=== PATIENT | male | born 1950 | race Caucasian/White ===

== ENCOUNTER → 2020-02-10 | Outpatient (CLI) | payer BC, MEDICARE | END | disposition home or self-care (01) | LOC: CVU 08:04 | PROVIDERS: ATTEND Internal Medicine Cardiovascular Disease | DX: R94.31 Abnormal electrocardiogram [ECG] [EKG] (principal); I10 Essential (primary) hypertension; E11.9 Type 2 diabetes mellitus without complications | CPT/HCPCS: 93306 ==

== ENCOUNTER → 2020-07-20 | Outpatient (CLI) | payer MEDICARE ==
[~2020-07-20] MED LIST: ASCO100018 PO; ASPI-496 PO; ATOR10TA9 PO; CALC300T4 PO; CHOL10003 PO; ENAL20TA9 PO; FINA5TAB4 PO; FURO20TA3 PO; GARL10002 PO; HYDR-3240 PO; HYDR-3241 PO; Hydro Eye PO; IBUP-1223 PO; LEVO137T2 PO; METF500T17 PO; OMEG100023 PO; OMNIPAQUE 350 MG/ML, 100ML BOTTLE ONE; POTA10CA PO; RANI150T4 PO; TRIA1TAB5 PO; TURM500C4 PO; UBID1CAP43 PO; hydro Eye PO; zinc PO
== END | disposition home or self-care (01) ==
LOC: CFH 07:08
PROVIDERS: ATTEND Pathology Hematology
DX: C73 Malignant neoplasm of thyroid gland (principal); N28.1 Cyst of kidney, acquired; N20.0 Calculus of kidney; Z90.49 Acquired absence of other specified parts of digestive tract
CPT/HCPCS: 71260; 74177; Q9967

== ENCOUNTER 2020-11-08 09:07 | Outpatient (CLI) | payer MEDICARE ==
[~2020-11-08 09:07] MED LIST changes: +HYDR-1067 PO; -HYDR-3240 PO; -OMNIPAQUE 350 MG/ML, 100ML BOTTLE ONE
[2020-11-08] MEDS ORDERED: OMNIPAQUE 350 MG/ML, 100ML BOTTLE ONE (09:45)
== END 2020-11-08 23:59 | disposition home or self-care (01) ==
LOC: CFH 09:07
PROVIDERS: ATTEND Nurse Practitioner
DX: I77.810 Thoracic aortic ectasia (principal)
CPT/HCPCS: 71275; Q9967